=== PATIENT | female | born 1985 | race Caucasian/White ===

== ENCOUNTER 2019-08-08 18:26 | Emergency (ER) | payer OTHER ==
[~2019-08-08] VITALS: Ht 167.6 cm; Wt 80.7 kg
[2019-08-08 18:43] VITALS: BP 150/89
--- NOTE | 2019-08-08 19:00 | NUR ---
Patient ambulated to bed 7
--- NOTE | 2019-08-08 19:25 | NUR ---
34 YO FEMALE BIB FAMILY FOR C/OINTERMITENT LEFT CHEST PAIN RADIATING TO LEFT SHOULDER , LEFT NECK & LEFT BACK X 1 DAY. PT STATES SHE HAS BEEN UNDER A LOT OF STRESS. 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 PT DENIES SOB @ THIS TIME. LUNGS CLEAR EVEN UNLABORED. TAMEKA LOCKED IN LOWEST POSITION. MED HX: HTN RX: UNKNOWN
--- NOTE | 2019-08-08 19:27 | NUR ---
Dr. Garcia examining patient.
[2019-08-08] MEDS ORDERED: KETOROLAC 60 MG/2 ML VIAL IM ONE (19:30)
[2019-08-08 20:09] VITALS: BP 134/84
--- NOTE | 2019-08-08 20:10 | NUR ---
Patient discharged with v/s stable. Written and verbal after care instructions given and explained. Patient alert, oriented and verbalized understanding of instructions. Ambulatory with steady gait. All questions addressed prior to discharge. ID band removed. Patient advised to follow up with PMD. Rx of PRILOSEC, MOTRIN, NORCO given. Patient educated on indication of medication including possible reaction and side effects. Opportunity to ask questions provided and answered.
== END 2019-08-08 20:10 | disposition home or self-care (01) ==
LOC: MED 18:26
DX: K21.9 Gastro-esophageal reflux disease without esophagitis (principal); I10 Essential (primary) hypertension
CPT/HCPCS: 93005; 96372; 99283; J1885

== ENCOUNTER 2019-08-14 18:19 | Emergency (ER) | payer OTHER ==
[~2019-08-14] VITALS: Ht 165.1 cm; Wt 78.5 kg
[2019-08-14 18:49] VITALS: BP 148/82
--- NOTE | 2019-08-14 19:32 | NUR ---
PT AMBULATED TO BED WITH FAMILY/FRIEND
--- NOTE | 2019-08-14 19:35 | NUR ---
PT ASSESSMENT COMPLETE. PT SEATED UPRIGHT IN BED AND ATTACHED TO MONITORING SYSTEM. WILL CONTINUE TO MONITOR.
[2019-08-14] MEDS ORDERED: DICYCLOMINE HCL LIQUID 20 MG, ALUMINUM HYD/MAG/SIMETHICONE 30 ML, LIDOCAINE VISCOUS 2% ... PO ONE ×3 (20:10)
[2019-08-14] MEDS ORDERED: KETOROLAC 30 MG/ML VIAL IM ONE (20:10)
[2019-08-14] MEDS ORDERED: LIDOCAINE VISCOUS 2% 20 ML UDC ONE (20:16)
[2019-08-14] MEDS ORDERED: DICYCLOMINE HCL LIQUID 10 MG/5 ML UDC ONE (20:16)
[2019-08-14] MEDS ORDERED: ALUMINUM HYD/MAG/SIMETHICONE 30 ML UDC ONE (20:16)
--- NOTE | 2019-08-14 20:36 | NUR ---
PT AMBULATED TO RESTROOM. STEADY GAIT OBSERVED.
[2019-08-14 21:35] LABS: BASOPHILS # (AUTO) 0.1 K/uL (0.00-0.22); BASOPHILS % (AUTO) 0.6 % (0.0-2.0); EOSINOPHILS # (AUTO) 0.1 K/uL (0-0.4); EOSINOPHILS % (AUTO) 0.8 % (0.0-4.0); HEMATOCRIT 46.8 % (36-48); HEMOGLOBIN 16.9 g/dL (12.0-16.0); LYMPHOCYTES # (AUTO) 2.4 K/uL (2.5-16.5); LYMPHOCYTES % (AUTO) 20.4 % (20.5-51.1); MEAN CORPUSCULAR HEMOGLOBIN 32 pg (27-31); MEAN CORPUSCULAR HGB CONC 36 g/dL (33-37); MEAN CORPUSCULAR VOLUME 87.9 fL (80-94); MONOCYTES # (AUTO) 1.1 K/uL (0.8-1.0); MONOCYTES % (AUTO) 8.7 % (1.7-9.3); NEUTROPHILS # (AUTO) 8.3 K/uL (1.8-7.7); NEUTROPHILS % (AUTO) 69.5 % (42.2-75.2); PLATELET COUNT (AUTO) 315 K/uL (140-450); RED BLOOD CELL COUNT(AUTO) 5.32 MIL/uL (4.20-5.40); RED CELL DISTRIBUTION WIDTH 13.1 % (11.6-13.7)
--- NOTE | 2019-08-14 21:35 | NUR ---
PT REPORTS DECREASED PAIN 2/10. WILL CONTINUE TO MONITOR.
[2019-08-14 21:46] LABS: ALBUMIN 4.5 g/dL (3.4-5.0); ANION GAP 7.6 (8-16); CARBON DIOXIDE 31.1 mmol/L (21-32); CREATININE 1.1 mg/dL (0.6-1.3); POTASSIUM 3.7 mmol/L (3.5-5.1); TOTAL BILIRUBIN 0.4 mg/dL (0.0-1.0)
[2019-08-14 23:01] VITALS: BP 113/78
--- NOTE | 2019-08-14 23:02 | NUR ---
Patient discharged with v/s stable. Written and verbal after care instructions given and explained. Patient verbalized understanding. Ambulatory with steady gait. All questions addressed prior to discharge. Advised to follow up with PMD.
== END 2019-08-14 23:01 | disposition home or self-care (01) ==
LOC: MED 18:19
DX: K29.70 Gastritis, unspecified, without bleeding (principal); I10 Essential (primary) hypertension
CPT/HCPCS: 36415; 71045; 80053; 81002; 84484; 85025; 85379; 93005; 96372; 99285; J1885; 81025

== ENCOUNTER 2019-08-27 21:20 | Emergency (ER) | payer OTHER ==
[~2019-08-27] VITALS: Ht 165.1 cm; Wt 78.0 kg
[2019-08-27 21:32] VITALS: BP 156/88
[2019-08-27] MEDS ORDERED: LORazepam 1 MG TAB PO ONE (22:00)
[2019-08-27 23:07] VITALS: BP 156/88
== END 2019-08-27 23:09 | disposition home or self-care (01) ==
LOC: MED 21:20
DX: R07.2 Precordial pain (principal); I10 Essential (primary) hypertension; Z90.49 Acquired absence of other specified parts of digestive tract
CPT/HCPCS: 93005; 99283

== ENCOUNTER 2019-11-30 19:22 | Emergency (ER) | payer OTHER ==
[~2019-11-30] VITALS: Ht 170.2 cm; Wt 81.6 kg
[2019-11-30 19:31] VITALS: BP 162/104
--- NOTE | 2019-11-30 19:38 | NUR ---
PT AMBULATED TO BED 10 WITH STEADY GAIT
--- NOTE | 2019-11-30 19:40 | NUR ---
PT 34 Y/O TRANSGENDER M TO F BIB SELF FOR C/O 8/10 STERNAL CHEST PAIN X 1 DAY. PT AAO X4. PT STATES PAIN BEGAN YESTER AND RATES TO L ARM. PT RESPIRATIONS ARE EVEN AND UNLABORED. SKIN IS WARM AND DRY TO TOUCH. PT STATES SHE TOOK TYLENOL AT HOME WITH INEFFECTIVE RESULTS. PT STATES PAIN BEGAN WHEN SHE WAS RESTING IN BED. PT ADMITS TO TAKING ESTROGEN TO HELP WITH TRANSITIONING AND SHE IS COMPLIANT WITH HER B/P MEDICATIONS. PT ON LEATHER SPRAYER. B/P: 141/96, HR: 101. BED LOCKED AND IN LOWEST POSITION. MEDHX: HTN, GERD ALLERGIES: NKA
--- NOTE | 2019-11-30 19:43 | NUR ---
EKG PERFORMED AT BEDSIDE
--- NOTE | 2019-11-30 19:44 | NUR ---
EKG BEING PERFORMED AT BEDSIDE.
--- NOTE | 2019-11-30 19:47 | NUR ---
ROSEANN JONES AT BEDSIDE EVALUATING PT.
[2019-11-30] MEDS ORDERED: KETOROLAC 30 MG/ML VIAL IM ONE (19:55)
--- NOTE | 2019-11-30 20:02 | NUR ---
PT MEDICATED WITH TORADOL IM FOR 8/10 CHEST PAIN TOLERATED WELL. NADR
--- NOTE | 2019-11-30 20:03 | NUR ---
XRAY AT BEDSIDE
--- NOTE | 2019-11-30 20:14 | NUR ---
LAB AT BEDSIDE.
[2019-11-30 20:27] LABS: BASOPHILS # (AUTO) 0.1 K/uL (0.00-0.22); BASOPHILS % (AUTO) 0.8 % (0.0-2.0); EOSINOPHILS # (AUTO) 0.1 K/uL (0-0.4); EOSINOPHILS % (AUTO) 0.8 % (0.0-4.0); HEMATOCRIT 50.3 % (36-48); HEMOGLOBIN 16.9 g/dL (12.0-16.0); LYMPHOCYTES % (AUTO) 23.6 % (20.5-51.1); MEAN CORPUSCULAR HEMOGLOBIN 31 pg (27-31); MEAN CORPUSCULAR HGB CONC 34 g/dL (33-37); MEAN CORPUSCULAR VOLUME 91.4 fL (80-94); MONOCYTES # (AUTO) 0.8 K/uL (0.8-1.0); MONOCYTES % (AUTO) 6.3 % (1.7-9.3); NEUTROPHILS # (AUTO) 8.6 K/uL (1.8-7.7); NEUTROPHILS % (AUTO) 68.5 % (42.2-75.2); PLATELET COUNT (AUTO) 325 K/uL (140-450); RED CELL DISTRIBUTION WIDTH 13.6 % (11.6-13.7); WHITE BLOOD COUNT (AUTO) 12.6 K/uL (4.8-10.8)
[2019-11-30 20:48] LABS: ALBUMIN 4.1 g/dL (3.4-5.0); ANION GAP 13.1 (8-16); CARBON DIOXIDE 28.3 mmol/L (21-32); CREATININE 1.2 mg/dL (0.6-1.3); POTASSIUM 3.4 mmol/L (3.5-5.1); TOTAL BILIRUBIN 0.3 mg/dL (0.0-1.0)
--- NOTE | 2019-11-30 20:53 | NUR ---
PT STATES PAIN IN CHEST REDUCED FROM 8/10 TO 4/10. PT STATES PAIN IS TOLERABLE. PT CONTINUES ON THAI MASSEUR. VSS.
--- NOTE | 2019-11-30 21:09 | NUR ---
AT [facility].
[2019-11-30 21:17] VITALS: BP 129/91
== END 2019-11-30 21:17 | disposition home or self-care (01) ==
LOC: MED 19:22
DX: R07.9 Chest pain, unspecified (principal); I10 Essential (primary) hypertension; Z90.49 Acquired absence of other specified parts of digestive tract
CPT/HCPCS: 36415; 71045; 80053; 81025; 84484; 85025; 85379; 93005; 96372; 99285; J1885; Q0092

== ENCOUNTER 2020-01-28 08:22 | Emergency (ER) | payer OTHER ==
[~2020-01-28] VITALS: Ht 167.6 cm; Wt 83.9 kg
[2020-01-28 08:25] VITALS: BP 166/100
--- NOTE | 2020-01-28 08:43 | NUR ---
C/O MIGRAINE WITH LIGHTHEADEDNESS--X 4 DAYS--- SEEN IN URGENT CARE YESTERDAY, PT STATES MED RX NOT WORKING . PT AOX4 , AFIBRILE , AMBULATORY WITH STEADY GAIT.GCS 15.DENIES N/V. HX--HTN, MIGRAINE---ESTROGEN--- RX--AMLODIPINE 5MG QD, TYLENOL, ASA 81MG
--- NOTE | 2020-01-28 08:46 | NUR ---
dr patterson at bedside evaluating pt.
[2020-01-28] MEDS ORDERED: LIDOCAINE MPF 1% 10 MG/ML VIAL INJ ONE (08:55)
[2020-01-28] MEDS ORDERED: ACETAMINOPHEN 325 MG TAB PO ONE (08:55)
--- NOTE | 2020-01-28 09:17 | NUR ---
dr patterson at bedside administered xylocaine IM left shoulder.
[2020-01-28 09:47] VITALS: BP 134/95
--- NOTE | 2020-01-28 09:48 | NUR ---
Patient discharged with v/s stable. Written and verbal after care instructions given and explained regarding headaches . Patient alert, oriented and verbalized understanding of instructions. Ambulatory with steady gait. All questions addressed prior to discharge. ID band removed. Patient advised to follow up with PMD. Rx of naprosyn given. Patient educated on indication of medication including possible reaction and side effects. Opportunity to ask questions provided and answered.
== END 2020-01-28 09:48 | disposition home or self-care (01) ==
LOC: MED 08:22
DX: G44.209 Tension-type headache, unspecified, not intractable (principal); M54.2 Cervicalgia; H53.8 Other visual disturbances; I10 Essential (primary) hypertension; Z90.49 Acquired absence of other specified parts of digestive tract
CPT/HCPCS: 20552; 81002; 81025; 99284; J2001

== ENCOUNTER 2020-03-04 00:34 | Emergency (ER) | payer OTHER ==
[~2020-03-04] VITALS: Ht 167.6 cm; Wt 87.1 kg
[2020-03-04 00:43] VITALS: BP 164/104
--- NOTE | 2020-03-04 01:32 | NUR ---
PT STARTED HAVING EPIGASTRIC PAIN AND LSIDE ABD PAIN X 2 DAYS. CHEST PAIN IS PRESSURE, TIGHTNESS, ABD PAIN IS SHARP, 8/10. +NAUSEA, AND 1 EPISODE OF BLOODY DIARRHEA THIS EVENING. ABD IS TENDER UPON PALPATION. PT AFEBRILE, SOB. RESPIRATIONS REGULAR EVEN AND UNLABORED. BED IN LOWEST POSITION AND SIDERAIL UP X 1. NKA HX - ANXIETY, HTN, TRANSGENDER MALE TO FEMALE
--- NOTE | 2020-03-04 01:32 | NUR ---
X-RAY AT BEDSIDE
[2020-03-04 01:40] LABS: BASOPHILS # (AUTO) 0.1 K/uL (0.00-0.22); BASOPHILS % (AUTO) 0.7 % (0.0-2.0); EOSINOPHILS # (AUTO) 0.1 K/uL (0-0.4); HEMATOCRIT 47.7 % (36-48); LYMPHOCYTES # (AUTO) 2.6 K/uL (2.5-16.5); LYMPHOCYTES % (AUTO) 22.5 % (20.5-51.1); MEAN CORPUSCULAR HEMOGLOBIN 31 pg (27-31); MEAN CORPUSCULAR HGB CONC 34 g/dL (33-37); MEAN CORPUSCULAR VOLUME 91.2 fL (80-94); MONOCYTES % (AUTO) 9.1 % (1.7-9.3); NEUTROPHILS # (AUTO) 7.6 K/uL (1.8-7.7); NEUTROPHILS % (AUTO) 66.7 % (42.2-75.2); PLATELET COUNT (AUTO) 306 K/uL (140-450); RED BLOOD CELL COUNT(AUTO) 5.23 MIL/uL (4.20-5.40); RED CELL DISTRIBUTION WIDTH 13.4 % (11.6-13.7); WHITE BLOOD COUNT (AUTO) 11.4 K/uL (4.8-10.8)
[2020-03-04] MEDS: NACL 0.9% 500 ML IV ONE (01:49)
[2020-03-04 01:55] LABS: CARBON DIOXIDE 27.3 mmol/L (21-32); CREATININE 1.1 mg/dL (0.6-1.3); POTASSIUM 3.3 mmol/L (3.5-5.1); TOTAL BILIRUBIN 0.3 mg/dL (0.0-1.0)
[2020-03-04] MEDS: KETOROLAC 30 MG/ML VIAL IVP ONE (01:57)
--- NOTE | 2020-03-04 02:05 | NUR ---
PT AMBULATED TO RESTROOM WITH STEADY GAIT.
--- NOTE | 2020-03-04 02:17 | NUR ---
LAB COLLECTED URINE.
[2020-03-04 02:18] LABS: APPEARANCE,URINE CLEAR (CLEAR); BILIRUBIN,URINE NEGATIVE (NEGATIVE); BLOOD, URINE NEGATIVE (NEGATIVE); COLOR,URINE YELLOW (YELLOW); LEUKOCYTE ESTERASE ,URINE NEGATIVE (NEGATIVE); NITRITE, URINE NEGATIVE (NEGATIVE); UGLUCOSE NEGATIVE (NEGATIVE)
[2020-03-04] MEDS: POTASSIUM CHLORIDE 10 MEQ TABER PO ONE (02:49)
[2020-03-04 02:56] VITALS: BP 128/81
--- NOTE | 2020-03-04 02:57 | NUR ---
Patient discharged with v/s stable. Written and verbal after care instructions given and explained. Patient alert, oriented and verbalized understanding of instructions. Ambulatory with steady gait. All questions addressed prior to discharge. ID band removed. Patient advised to follow up with PMD. Rx of TORADOL AND PROTONIX given. Patient educated on indication of medication including possible reaction and side effects. Opportunity to ask questions provided and answered.
== END 2020-03-04 02:56 | disposition home or self-care (01) ==
LOC: MED 00:34
DX: R07.9 Chest pain, unspecified (principal); I12.9 Hypertensive chronic kidney disease with stage 1 through stage 4 chronic kidney disease, or unspecified chronic kidney disease; N18.9 Chronic kidney disease, unspecified; E87.6 Hypokalemia; R00.0 Tachycardia, unspecified; Z90.49 Acquired absence of other specified parts of digestive tract
CPT/HCPCS: 36415; 71045; 74018; 80053; 81003; 84484; 85025; 85379; 93005; 96361; 96374; 99285; J1885; J7030; Q0092

== ENCOUNTER 2021-01-04 12:55 | Emergency (ER) | payer OTHER ==
[~2021-01-04] VITALS: Ht 167.6 cm; Wt 83.9 kg
[2021-01-04 13:09] VITALS: BP 166/111
[2021-01-04] MEDS ORDERED: DICYCLOMINE HCL LIQUID 20 MG, ALUMINUM HYD/MAG/SIMETHICONE 30 ML, LIDOCAINE VISCOUS 2% ... PO ONE ×3 (13:40)
[2021-01-04] MEDS ORDERED: ONDANSETRON 4 MG/2 ML VIAL IVP ONE (13:40)
[2021-01-04] MEDS ORDERED: MORPHINE SULFATE 2 MG/ML SYR IVP ONE ×2 (13:40→15:40)
[2021-01-04] MEDS ORDERED: NACL 0.9% 1,000 ML IV ONE (13:40)
--- NOTE | 2021-01-04 13:55 | NUR ---
35 Y/O F BIB SELF FROM HOME, PATIENT PRESENTS TO ED WITH C/O EPIGASTRIC PAIN X 2 DAYS. PT STATES PAIN STARTED IN ABDOMINAL AREA 1 WEEK AGO AND NOW RADIATES TO EPIGASTRIC REGION. PT DENIES DYSURIA, INCREASED FREQUENCY, OR HEMATURIA. DENIES N/V/D; SKIN IS PINK/WARM/DRY; AAOX4 WITH EVEN AND STEADY GAIT; LUNGS CLEAR BL; HR EVEN AND REGULAR; PT DENIES ANY FEVER, CP, SOB, OR COUGH AT THIS TIME; PATIENT STATES PAIN OF 8/10 AT THIS TIME; VSS; PATIENT POSITIONED FOR COMFORT; HOB ELEVATED; BEDRAILS UP X2; BED DOWN. ER MD MADE AWARE OF PT STATUS. PMH: HTN NKA
[2021-01-04] MEDS ORDERED: DICYCLOMINE HCL LIQUID 10 MG/5 ML UDC ONE (14:01)
[2021-01-04] MEDS ORDERED: ALUMINUM HYD/MAG/SIMETHICONE 30 ML UDC ONE (14:01)
--- NOTE | 2021-01-04 14:25 | NUR ---
Patient resting in semi-fowlers position in position of comfort. air sampling and monitoring in place. Family remains at bedside. VSS; respirations even/unlabored. Bed locked in lowest position, side rails x 1, call light in reach.
--- NOTE | 2021-01-04 14:30 | NUR ---
Patient reports positive relief; states pain 5/10 at this time.
[2021-01-04 14:44] LABS: BASOPHILS % (AUTO) 0.4 % (0.0-2.0); EOSINOPHILS % (AUTO) 0.1 % (0.0-4.0); HEMATOCRIT 52.1 % (36-48); HEMOGLOBIN 17.6 g/dL (12.0-16.0); LYMPHOCYTES # (AUTO) 1.5 K/uL (2.5-16.5); LYMPHOCYTES % (AUTO) 13.9 % (20.5-51.1); MEAN CORPUSCULAR HEMOGLOBIN 31 pg (27-31); MEAN CORPUSCULAR HGB CONC 34 g/dL (33-37); MEAN CORPUSCULAR VOLUME 91.3 fL (80-94); MONOCYTES # (AUTO) 0.5 K/uL (0.8-1.0); MONOCYTES % (AUTO) 4.9 % (1.7-9.3); NEUTROPHILS % (AUTO) 80.7 % (42.2-75.2); PLATELET COUNT (AUTO) 324 K/uL (140-450); RED BLOOD CELL COUNT(AUTO) 5.71 MIL/uL (4.20-5.40); RED CELL DISTRIBUTION WIDTH 13.8 % (11.6-13.7); WHITE BLOOD COUNT (AUTO) 11.2 K/uL (4.8-10.8)
[2021-01-04 15:02] LABS: ALBUMIN 4.4 g/dL (3.4-5.0); ANION GAP 14.1 (8-16); CARBON DIOXIDE 26.7 mmol/L (21-32); CREATININE 1.1 mg/dL (0.6-1.3); POTASSIUM 3.8 mmol/L (3.5-5.1); TOTAL BILIRUBIN 0.4 mg/dL (0.0-1.0)
--- NOTE | 2021-01-04 15:27 | NUR ---
Patient states abdominal pain has subsided; rates it 2/10; however, states epigastric pain is at 7/10. Patient requesting more pain medication at this time. PARIS Shabazz made aware.
[2021-01-04] MEDS ORDERED: ACET-10509 PO (15:40)
[2021-01-04] MEDS ORDERED: FAMO20TA13 PO (15:40)
[2021-01-04 16:00] VITALS: BP 154/83
--- NOTE | 2021-01-04 16:00 | NUR ---
Patient discharged with v/s stable. Written and verbal after care instructions given and explained. Patient alert, oriented and verbalized understanding of instructions. Ambulatory with steady gait. All questions addressed prior to discharge. ID band removed. Patient advised to follow up with PMD. Rx of Acetaminophen, Famotidine given. Patient educated on indication of medication including possible reaction and side effects. Opportunity to ask questions provided and answered.
== END 2021-01-04 16:00 | disposition home or self-care (01) ==
LOC: MED 12:55
DX: K29.70 Gastritis, unspecified, without bleeding (principal); I10 Essential (primary) hypertension; Z79.899 Other long term (current) drug therapy
CPT/HCPCS: 36415; 80053; 81002; 83690; 85025; 93005; 96361; 96374; 96375; 96376; 99284; J2270; J2405; J7030

== ENCOUNTER 2021-03-30 10:29 | Emergency (ER) | payer OTHER ==
[~2021-03-30] VITALS: Ht 170.2 cm; Wt 83.9 kg
[~2021-03-30 10:29] MED LIST: ACET-10509 PO; FAMO20TA13 PO
[2021-03-30 10:41] VITALS: BP 154/95
--- NOTE | 2021-03-30 10:50 | NUR ---
PATIENT AMBULATED WITH STEADY GAIT BED 9.
--- NOTE | 2021-03-30 11:15 | NUR ---
36 y/o F BIB c/o sternal chest pain since 0400 today. Patient A&Ox4, ambulatory, reports acute onset of chest pain that woke patient up from sleep. Patient states 10/10, sharp/constant, non-radiating pain. Patient also states left sided chest pain that is stabbing in nature. Patient states associated nausea and abdominal pain x "weeks." Reports epigastric pain 10/10, sharp/intermittent, non-radiating pain. Patient states taking aspirin for abdominal pain, denies any other medications prior to arrival. Denies diarrhea, vomiting, dysuria, urinary symptoms, fever, chills, headache, blurry vision, SOB. Skin warm/dry/pink. Pt states feeling bloated and last BM this morning but "it comes out very small and little amounts." Pt placed into a gown. Bed locked in lowest position, side rails x 1. PMH/Sx/Meds: hernia, HTN (no medications taken), daily ASA Sx: appendectomy, cholecystectomy 1 hr ago
--- NOTE | 2021-03-30 11:26 | NUR ---
Dr. Barros is evaluating patient at bedside.
[2021-03-30] MEDS ORDERED: AMLO5TAB PO (11:46)
[2021-03-30] MEDS ORDERED: OMEP40EC24 PO (11:46)
[2021-03-30 11:50] VITALS: BP 139/86
--- NOTE | 2021-03-30 11:51 | NUR ---
Patient discharged with v/s stable. Written and verbal after care instructions given and explained. Patient alert, oriented and verbalized understanding of instructions. Ambulatory with steady gait. All questions addressed prior to discharge. ID band removed. Patient advised to follow up with PMD. Rx of NORVASC, AND PRILOSEC given. Patient educated on indication of medication including possible reaction and side effects. Opportunity to ask questions provided and answered.
== END 2021-03-30 11:51 | disposition home or self-care (01) ==
LOC: MED 10:29
DX: K21.9 Gastro-esophageal reflux disease without esophagitis (principal); I10 Essential (primary) hypertension; Z90.49 Acquired absence of other specified parts of digestive tract
CPT/HCPCS: 93005; 99283

== ENCOUNTER 2021-08-08 17:04 | Emergency (ER) | payer OTHER ==
[~2021-08-08] VITALS: Ht 170.2 cm; Wt 86.6 kg
[~2021-08-08 17:04] MED LIST changes: +AMLO5TAB PO; +OMEP40EC24 PO
[2021-08-08 17:09] VITALS: BP 159/99
[2021-08-08 19:12] LABS: BASOPHILS # (AUTO) 0.1 K/uL (0.00-0.22); BASOPHILS % (AUTO) 0.5 % (0.0-2.0); EOSINOPHILS % (AUTO) 0.2 % (0.0-4.0); HEMATOCRIT 51.2 % (36-48); LYMPHOCYTES # (AUTO) 1.8 K/uL (2.5-16.5); LYMPHOCYTES % (AUTO) 13.2 % (20.5-51.1); MEAN CORPUSCULAR HEMOGLOBIN 31 pg (27-31); MEAN CORPUSCULAR HGB CONC 35 g/dL (33-37); MEAN CORPUSCULAR VOLUME 89.1 fL (80-94); MONOCYTES % (AUTO) 7.1 % (1.7-9.3); NEUTROPHILS # (AUTO) 10.6 K/uL (1.8-7.7); PLATELET COUNT (AUTO) 339 K/uL (140-450); RED BLOOD CELL COUNT(AUTO) 5.74 MIL/uL (4.20-5.40); RED CELL DISTRIBUTION WIDTH 13.3 % (11.6-13.7); WHITE BLOOD COUNT (AUTO) 13.5 K/uL (4.8-10.8)
[2021-08-08] MEDS ORDERED: DOCU-474 PO (19:19)
[2021-08-08] MEDS ORDERED: PSYL575P2 PO (19:19)
[2021-08-08 19:23] LABS: ALBUMIN 4.3 g/dL (3.4-5.0); ANION GAP 13.5 (8-16); CARBON DIOXIDE 26.2 mmol/L (21-32); CREATININE 1.1 mg/dL (0.6-1.3); POTASSIUM 3.7 mmol/L (3.5-5.1); TOTAL BILIRUBIN 0.4 mg/dL (0.0-1.0)
[2021-08-08 20:08] VITALS: BP 140/85
== END 2021-08-08 20:08 | disposition home or self-care (01) ==
LOC: MED 17:04
DX: K59.00 Constipation, unspecified (principal); R11.0 Nausea; I10 Essential (primary) hypertension; Z79.899 Other long term (current) drug therapy
CPT/HCPCS: 36415; 80053; 81002; 85025; 93005; 99285

== ENCOUNTER 2022-02-27 21:55 | Emergency (ER) | payer OTHER ==
[~2022-02-27] VITALS: Ht 170.2 cm; Wt 71.2 kg
[~2022-02-27 21:55] MED LIST changes: +DOCU-474 PO; +PSYL575P2 PO
[2022-02-27 22:00] VITALS: BP 143/90
--- NOTE | 2022-02-27 22:18 | NUR ---
Blood for labwork drawn . Patient tolerated well.
[2022-02-27 22:21] LABS: BASOPHILS # (AUTO) 0.1 K/uL (0.00-0.22); BASOPHILS % (AUTO) 0.4 % (0.0-2.0); EOSINOPHILS # (AUTO) 0.1 K/uL (0-0.4); EOSINOPHILS % (AUTO) 1.1 % (0.0-4.0); HEMATOCRIT 52.9 % (36-48); HEMOGLOBIN 18.1 g/dL (12.0-16.0); LYMPHOCYTES # (AUTO) 3.4 K/uL (2.5-16.5); LYMPHOCYTES % (AUTO) 26.3 % (20.5-51.1); MEAN CORPUSCULAR HEMOGLOBIN 31 pg (27-31); MEAN CORPUSCULAR HGB CONC 34 g/dL (33-37); MEAN CORPUSCULAR VOLUME 90.6 fL (80-94); MONOCYTES # (AUTO) 1.1 K/uL (0.8-1.0); MONOCYTES % (AUTO) 8.8 % (1.7-9.3); NEUTROPHILS # (AUTO) 8.2 K/uL (1.8-7.7); NEUTROPHILS % (AUTO) 63.4 % (42.2-75.2); PLATELET COUNT (AUTO) 356 K/uL (140-450); RED BLOOD CELL COUNT(AUTO) 5.85 MIL/uL (4.20-5.40); RED CELL DISTRIBUTION WIDTH 13.5 % (11.6-13.7)
--- NOTE | 2022-02-27 22:21 | NUR ---
Patient taken to X-ray via WC.
--- NOTE | 2022-02-27 22:28 | NUR ---
PT RETURN FROM RADIOLOGY
--- NOTE | 2022-02-27 22:38 | NUR ---
Patient taken to bed 6.
--- NOTE | 2022-02-27 22:38 | NUR ---
C/O shortness of breath x today. Patient reported, had shortness of breath, chest wall pain 9/10 since this morning. PMHx: HTN
[2022-02-27] MEDS ORDERED: LORazepam 1 MG TAB PO ONE (22:50)
[2022-02-27 22:52] LABS: ALBUMIN 4.7 g/dL (3.4-5.0); ANION GAP 16.6 (8-16); ASPARTATE AMINOTRANSFERASE 36 U/L (15-37); CARBON DIOXIDE 26.1 mmol/L (21-32); CHLORIDE 100 mmol/L (98-107); CREATININE 1.3 mg/dL (0.6-1.3); GFR ARICAN-AMERICAN 59 mL/min (>90); GLUCOSE 107 mg/dL (74-106); POTASSIUM 3.7 mmol/L (3.5-5.1); SODIUM SERUM 139 mmol/L (136-145); TOTAL BILIRUBIN 0.5 mg/dL (0.0-1.0); UREA NITROGEN, BLOOD 13 mg/dL (7-18)
--- NOTE | 2022-02-27 22:53 | NUR ---
PATIENT AMBULATED TO RR
[2022-02-27 23:28] LABS: BARBITURATE, URINE NEGATIVE ng/ml (NEG <=200); BENZODIAZEPINE, URINE NEGATIVE ng/mL (NEG <=200); CANNABINOID, URINE NEGATIVE ng/mL (NEG <=50); COCAINE, URINE NEGATIVE ng/mL (NEG <=300); OPIATE, URINE NEGATIVE ng/mL (NEG <=2000); PHENCYCLIDINE SCREEN,URINE NEGATIVE ng/mL (NEG <=25)
[2022-02-28] MEDS ORDERED: METOPROLOL 25 MG TAB PO ONE
[2022-02-28 00:23] VITALS: BP 128/78
--- NOTE | 2022-02-28 00:24 | NUR ---
PATIENT MEDICATED PER ORDERS. TOLERATED MEDICATION WELL.
--- NOTE | 2022-02-28 00:28 | NUR ---
Patient discharged with v/s stable BY ERMD. Written and verbal after care instructions given and explained. Patient verbalized understanding. Ambulatory with steady gait. All questions addressed prior to discharge. Advised to follow up with PMD.
--- NOTE | 2022-02-28 00:29 | NUR ---
The patient's care was reviewed and supervised by Dasia Arellano RN.
== END 2022-02-28 00:28 | disposition home or self-care (01) ==
LOC: MED 21:55
DX: R06.02 Shortness of breath (principal)
CPT/HCPCS: 36415; 71045; 80053; 80305; 81025; 84484; 85025; 85379; 93005; 99285; G0482; Q0092

== ENCOUNTER 2022-04-05 16:44 | Emergency (ER) | payer OTHER ==
[~2022-04-05] VITALS: Ht 170.2 cm; Wt 83.0 kg
[2022-04-05 16:53] VITALS: BP 132/98
--- NOTE | 2022-04-05 16:56 | NUR ---
PT AMBULATED TO ROOM 5
--- NOTE | 2022-04-05 17:06 | NUR ---
37YO FEMALE PT C/O INCREASED PRESSURED MID ABDOMINAL PAIN AND NAUSEA XTODAY. STATES INITIAL PAIN STARTED 1 WEEK AGO ALONG WITH MILD CONSTIPATION. STATES TAKING A STOOL SOFTNER AND HAVING X1 LOOSE BM TODAY W/ NO PAIN RELIEF. ABDOMEN SOFT, TENDER , NON DISTENDED , ACTIVE X4. STATES TAKING TYLENOL W/ MILD RELIEF. DENIES V, CHEST PAIN , SOB FEVER OR CHILLS. PT AAOX4, IN VISIBLE DISTRESS ANG RESTLESS. HOB POSITIONED PER COMFORT. HX: HTN NKA
[2022-04-05] MEDS ORDERED: MORPHINE SULFATE 4 MG/ML SYR IVP ONE (17:40)
[2022-04-05] MEDS ORDERED: ONDANSETRON 4 MG/2 ML VIAL IVP ONE (17:40)
[2022-04-05] MEDS: NACL 0.9% 1,000 ML IV SCH ×3 (17:55→19:25)
[2022-04-05 18:09] LABS: BASOPHILS # (AUTO) 0.1 K/uL (0.00-0.22); BASOPHILS % (AUTO) 0.9 % (0.0-2.0); EOSINOPHILS # (AUTO) 0.2 K/uL (0-0.4); EOSINOPHILS % (AUTO) 1.4 % (0.0-4.0); HEMATOCRIT 52.6 % (36-48); HEMOGLOBIN 18.6 g/dL (12.0-16.0); LYMPHOCYTES # (AUTO) 2.8 K/uL (2.5-16.5); LYMPHOCYTES % (AUTO) 20.7 % (20.5-51.1); MEAN CORPUSCULAR HEMOGLOBIN 32 pg (27-31); MEAN CORPUSCULAR HGB CONC 35 g/dL (33-37); MONOCYTES % (AUTO) 7.6 % (1.7-9.3); NEUTROPHILS # (AUTO) 9.4 K/uL (1.8-7.7); NEUTROPHILS % (AUTO) 69.4 % (42.2-75.2); PLATELET COUNT (AUTO) 358 K/uL (140-450); RED BLOOD CELL COUNT(AUTO) 5.91 MIL/uL (4.20-5.40); RED CELL DISTRIBUTION WIDTH 13.2 % (11.6-13.7); WHITE BLOOD COUNT (AUTO) 13.5 K/uL (4.8-10.8)
[2022-04-05 18:10] LABS: APPEARANCE,URINE CLEAR (CLEAR); BILIRUBIN,URINE NEGATIVE (NEGATIVE); BLOOD, URINE NEGATIVE (NEGATIVE); COLOR,URINE YELLOW (YELLOW); LEUKOCYTE ESTERASE ,URINE NEGATIVE (NEGATIVE); NITRITE, URINE NEGATIVE (NEGATIVE); UGLUCOSE NEGATIVE (NEGATIVE)
[2022-04-05 18:28] LABS: ALBUMIN 4.5 g/dL (3.4-5.0); ANION GAP 14.6 (8-16); CARBON DIOXIDE 28.1 mmol/L (21-32); CREATININE 1.2 mg/dL (0.6-1.3); POTASSIUM 3.7 mmol/L (3.5-5.1); TOTAL BILIRUBIN 0.5 mg/dL (0.0-1.0)
[2022-04-05 18:40] VITALS: BP 124/77
--- NOTE | 2022-04-05 19:14 | NUR ---
REPORT GIVEN TO CYNTHIA BAIG. TRANSFER OF CARE AT THIS TIME
--- NOTE | 2022-04-05 20:10 | NUR ---
PT TAKEN TO CT
--- NOTE | 2022-04-05 20:10 | NUR ---
PT TO CT
--- NOTE | 2022-04-05 21:58 | NUR ---
PT IS RESTING IN BED. CT ABD DONE. RESULTS PENDING. PT IS A&OX4 RESP EVEN AND UNLABORED. HOB ELEVATED. MID ABD PAIN 6/10 PAIN LEVEL . DENIES FEVER N/V/D.
[2022-04-05] MEDS ORDERED: HYDROcodone/APAP 10/325 MG 1 TAB TAB PO STA (22:51)
--- NOTE | 2022-04-05 23:09 | NUR ---
Chart checked and completed.
== END 2022-04-05 23:09 | disposition home or self-care (01) ==
LOC: MED 16:44
DX: R10.33 Periumbilical pain (principal); R19.7 Diarrhea, unspecified; R11.0 Nausea; I10 Essential (primary) hypertension; F41.9 Anxiety disorder, unspecified; Z79.899 Other long term (current) drug therapy; Z90.49 Acquired absence of other specified parts of digestive tract
CPT/HCPCS: 36415; 74177; 80053; 81003; 81025; 83690; 85025; 96361; 96374; 96375; 99285; J2270; J2405; J7030; Q9967

== ENCOUNTER 2023-04-07 17:33 | Emergency (ER) | payer OTHER ==
[~2023-04-07] VITALS: Ht 172.7 cm; Wt 90.7 kg
[2023-04-07 17:52] VITALS: BP 149/99; PULSE 117; RESP 20; TEMP 96.6; O2SAT 99
[2023-04-07] MEDS ORDERED: NACL 0.9% 1,000 ML IV ONE (18:25)
[2023-04-07] MEDS ORDERED: PROCHLORPERAZINE 10 MG/2 ML VIAL IVP ONE (18:25)
[2023-04-07 22:52] VITALS: TEMP 97.9
[2023-04-07] MEDS ORDERED: ACETAMINOPHEN EXTRA STRENGTH 500 MG TAB PO ONE (23:00)
[2023-04-07] MEDS ORDERED: KETOROLAC 30 MG/ML VIAL IVP ONE (23:00)
[2023-04-07] MEDS ORDERED: diphenhydrAMINE 50 MG/ML VIAL IVP ONE (23:00)
[2023-04-07] MEDS ORDERED: ACET-10509 PO (23:16)
[2023-04-07] MEDS ORDERED: IBUP-2213 PO (23:16)
[2023-04-07] MEDS ORDERED: PROCHLORPERAZINE 10 MG/2 ML VIAL ONE (23:32)
[2023-04-08 00:37] VITALS: BP 120/75; PULSE 96; RESP 17; O2SAT 96
== END 2023-04-08 00:30 | disposition home or self-care (01) ==
LOC: MED 17:33
DX: R51.9 Headache, unspecified (principal); I10 Essential (primary) hypertension; Z79.899 Other long term (current) drug therapy; Z79.1 Long term (current) use of non-steroidal anti-inflammatories (NSAID)
CPT/HCPCS: 70450; 96361; 96374; 96375; 99285; J0780; J1200; J1885; J7030